=== PATIENT | female | born 1985 | race African-American/Black ===

== ENCOUNTER 2018-03-23 10:08 | Inpatient (IN) | payer OTHER ==
[2018-03-23 10:41] LABS: HEMATOCRIT 40.7 % (36.0-47.0); HEMOGLOBIN 14.5 g/dl (12.0-15.5); MEAN CORPUSCULAR HEMOGLOBIN 32.7 pg (27.0-33.0); MEAN CORPUSCULAR HGB CONC 35.6 g/dl (32.0-36.5); MEAN CORPUSCULAR VOLUME 91.9 fl (80.0-96.0); PLATELET COUNT, AUTOMATED 195 10^3/uL (150-450); RED BLOOD COUNT 4.43 10^6/uL (4.00-5.40); RED CELL DISTRIBUTION WIDTH 13.2 % (11.5-14.5); WHITE BLOOD COUNT 4.3 10^3/uL (4.0-10.0)
[2018-03-23 11:01] LABS: CONTROL LINE HCG INT CTR LINE PRESENT; HCG, SERUM QUALITATIVE NEGATIVE (NEGATIVE)
[2018-03-23 11:02] LABS: AMPHETAMINES LEVEL URINE NEGATIVE (NEGATIVE); BARBITURATES URINE NEGATIVE (NEGATIVE); BENZODIAZEPINES URINE NEGATIVE (NEGATIVE); CANNABINOIDS URINE NEGATIVE (NEGATIVE); COCAINE METABOLITE URINE NEGATIVE (NEGATIVE); METHADONE URINE NEGATIVE (NEGATIVE); OPIATES URINE NEGATIVE (NEGATIVE); PHENCYCLIDINE URINE NEGATIVE (NEGATIVE)
[2018-03-23 11:16] LABS: ALBUMIN 4.1 GM/DL (3.2-5.2); ALKALINE PHOSPHATASE 49 U/L (45-117); ALT/SGPT 17 U/L (12-78); ANION GAP 8 MEQ/L (8-16); AST/SGOT 8 U/L (7-37); BILIRUBIN,DIRECT 0.1 MG/DL (0.0-0.2); BILIRUBIN,TOTAL 0.3 MG/DL (0.2-1.0); BLOOD UREA NITROGEN 15 MG/DL (7-18); CALCIUM LEVEL 8.8 MG/DL (8.5-10.1); CARBON DIOXIDE LEVEL 26 MEQ/L (21-32); CHLORIDE LEVEL 106 MEQ/L (98-107); CREATININE FOR GFR 0.79 MG/DL (0.55-1.30); ETHYL ALCOHOL (ETHANOL) 0.005 % (0.000-0.010); GLOMERULAR FILTRATION RATE > 60.0 (>60); GLUCOSE, FASTING 121 MG/DL (70-100); POTASSIUM SERUM 4.1 MEQ/L (3.5-5.1); SALICYLATE LEVEL < 1.7 MG/DL (5.0-30.0); SODIUM LEVEL 140 MEQ/L (136-145); TOTAL PROTEIN 8.2 GM/DL (6.4-8.2)
[2018-03-23 11:33] LABS: ACETAMINOPHEN LEVEL < 2.0 UG/ML (10.0-30.0)
[2018-03-23] MEDS ORDERED: MOM 30ML SUSPENSION UDC PO (17:30)
[2018-03-23] MEDS ORDERED: MAALOX 30 ML SUSP *UDC PO (17:30)
[2018-03-23] MEDS ORDERED: traZODone 50 MG TAB PO (17:30)
[2018-03-23] MEDS ORDERED: ACETAMINOPHEN TAB 650MG DOSE (2X325MG) PO (17:30)
[2018-03-24] MEDS: SERTRALINE HCL 50 MG TAB PO (09:00)
[2018-03-25] MEDS: SERTRALINE HCL 50 MG TAB PO (09:00)
[2018-03-26] MEDS: SERTRALINE HCL 50 MG TAB PO (09:00)
[2018-03-27] MEDS: SERTRALINE HCL 50 MG TAB PO (08:50)
[2018-03-28] MEDS: SERTRALINE HCL 50 MG TAB PO (08:42)
== END 2018-03-28 13:40 | disposition home or self-care (01) | DRG 885 ==
LOC: M ED 10:08 → M ED INP 13:51 → M PSY 15:51
DX: F33.1 Major depressive disorder, recurrent, moderate (principal); R45.851 Suicidal ideations; F43.10 Post-traumatic stress disorder, unspecified; Z88.0 Allergy status to penicillin

== ENCOUNTER 2018-07-10 08:44 | Inpatient (IN) | payer OTHER ==
[2018-07-10 10:15] LABS: HEMATOCRIT 40.5 % (36.0-47.0); HEMOGLOBIN 14.5 g/dl (12.0-15.5); MEAN CORPUSCULAR HEMOGLOBIN 31.9 pg (27.0-33.0); MEAN CORPUSCULAR HGB CONC 35.8 g/dl (32.0-36.5); PLATELET COUNT, AUTOMATED 241 10^3/uL (150-450); RED BLOOD COUNT 4.55 10^6/uL (4.00-5.40); RED CELL DISTRIBUTION WIDTH 13.1 % (11.5-14.5)
[2018-07-10 10:28] LABS: CONTROL LINE HCG INT CTR LINE PRESENT; HCG, SERUM QUALITATIVE NEGATIVE (NEGATIVE)
[2018-07-10 10:52] LABS: AMPHETAMINES LEVEL URINE NEGATIVE (NEGATIVE); BARBITURATES URINE NEGATIVE (NEGATIVE); BENZODIAZEPINES URINE NEGATIVE (NEGATIVE); CANNABINOIDS URINE NEGATIVE (NEGATIVE); COCAINE METABOLITE URINE NEGATIVE (NEGATIVE); METHADONE URINE NEGATIVE (NEGATIVE); OPIATES URINE NEGATIVE (NEGATIVE); PHENCYCLIDINE URINE NEGATIVE (NEGATIVE)
[2018-07-10 11:31] LABS: ALBUMIN 4.4 GM/DL (3.2-5.2); ALBUMIN/GLOBULIN RATIO 1.07 (1.00-1.93); ALKALINE PHOSPHATASE 54 U/L (45-117); ALT/SGPT 26 U/L (12-78); ANION GAP 11 MEQ/L (8-16); AST/SGOT 22 U/L (7-37); BILIRUBIN,DIRECT < 0.1 MG/DL (0.0-0.2); BILIRUBIN,TOTAL 0.2 MG/DL (0.2-1.0); BLOOD UREA NITROGEN 12 MG/DL (7-18); CALCIUM LEVEL 8.9 MG/DL (8.5-10.1); CARBON DIOXIDE LEVEL 21 MEQ/L (21-32); CHLORIDE LEVEL 107 MEQ/L (98-107); CREATININE FOR GFR 0.79 MG/DL (0.55-1.30); ETHYL ALCOHOL (ETHANOL) 0.083 % (0.000-0.010); GLOMERULAR FILTRATION RATE > 60.0 (>60); GLUCOSE, FASTING 124 MG/DL (70-100); SALICYLATE LEVEL < 1.7 MG/DL (5.0-30.0); SODIUM LEVEL 139 MEQ/L (136-145); THYROID STIMULATING HORMONE 0.987 uIU/ML (0.358-3.740); TOTAL PROTEIN 8.5 GM/DL (6.4-8.2)
[2018-07-10 11:32] LABS: ACETAMINOPHEN LEVEL < 2.0 UG/ML (10.0-30.0)
[2018-07-10] MEDS ORDERED: MOM 30ML SUSPENSION UDC PO (15:00)
[2018-07-10] MEDS ORDERED: MAALOX 30 ML SUSP *UDC PO (15:00)
[2018-07-10] MEDS ORDERED: LORazepam 2 MG TAB PO (15:00)
[2018-07-10] MEDS ORDERED: ACETAMINOPHEN TAB 650MG DOSE (2X325MG) PO (15:00)
[2018-07-10] MEDS: MULTIVITAMINS/MINERALS THERAP 1 TAB PO (18:22)
[2018-07-10] MEDS: FOLIC ACID 1 MG TAB PO (18:22)
[2018-07-10] MEDS: THIAMINE 100 MG TAB PO (18:22)
[2018-07-10] MEDS: traZODone 50 MG TAB PO (22:52)
[2018-07-11] MEDS: THIAMINE 100 MG TAB PO ×2 (09:52→22:19)
[2018-07-11] MEDS: FOLIC ACID 1 MG TAB PO (09:52)
[2018-07-11] MEDS: MULTIVITAMINS/MINERALS THERAP 1 TAB PO (09:53)
[2018-07-11] MEDS: INFLUENZA QUADRIVALENT PF VACCINE 0.5ML SYRINGE (90686) IM (09:54)
[2018-07-11] MEDS: ESCITALOPRAM OXALATE 10 MG TAB (LEXAPRO) PO (14:53)
[2018-07-11] MEDS: hydrOXYzine 50 MG TAB PO (16:37)
[2018-07-11] MEDS ORDERED: hydrOXYzine 25 MG TAB PO (16:45)
[2018-07-11] MEDS: PRAZOSIN 1 MG CAP PO (22:19)
[2018-07-11] MEDS: traZODone 50 MG TAB PO (22:19)
[2018-07-12] MEDS: PILL CRUSHER/CUTTER 1 EACH XX (08:54)
[2018-07-12] MEDS: FOLIC ACID 1 MG TAB PO (08:55)
[2018-07-12] MEDS: THIAMINE 100 MG TAB PO ×2 (08:55→20:48)
[2018-07-12] MEDS: MULTIVITAMINS/MINERALS THERAP 1 TAB PO (08:55)
[2018-07-12] MEDS: ESCITALOPRAM OXALATE 10 MG TAB (LEXAPRO) PO (08:56)
[2018-07-12] MEDS: traZODone 50 MG TAB PO (20:48)
[2018-07-12] MEDS: PRAZOSIN 1 MG CAP PO (20:49)
[2018-07-13] MEDS: FOLIC ACID 1 MG TAB PO (08:40)
[2018-07-13] MEDS: MULTIVITAMINS/MINERALS THERAP 1 TAB PO (08:40)
[2018-07-13] MEDS: ESCITALOPRAM OXALATE 10 MG TAB (LEXAPRO) PO (08:40)
[2018-07-13] MEDS: THIAMINE 100 MG TAB PO (08:40)
== END 2018-07-13 10:45 | disposition home or self-care (01) | DRG 881 ==
LOC: M ED 08:44 → M ED INP 14:56 → M PSY 16:15
DX: F32.9 Major depressive disorder, single episode, unspecified (principal); R45.851 Suicidal ideations; F10.10 Alcohol abuse, uncomplicated; F43.10 Post-traumatic stress disorder, unspecified; R45.850 Homicidal ideations; Z88.0 Allergy status to penicillin; F41.9 Anxiety disorder, unspecified